=== PATIENT | female | born 1990 | race Caucasian/White ===

== ENCOUNTER 2025-06-29 23:28 | Inpatient (IN) | payer BC, OTHER ==
[~2025-06-29] VITALS: Ht 157.5 cm; Wt 77.6 kg
[2025-06-29 23:59] VITALS: BP 178/101
[2025-06-30] VITALS (21 sets, daily range): BP systolic 124–174; BP diastolic 80–112; TEMP 96.9–98.4; O2SAT 97–100
[2025-06-30 00:32] LABS: PLATELET COUNT, AUTOMATED 184 10^3/uL (150-450)
[2025-06-30 00:46] LABS: APPEARANCE, URINE HAZY (CLEAR); BACTERIA, URINE AUTO 1+ (NEGATIVE); BILIRUBIN, URINE AUTO NEGATIVE (NEGATIVE); BLOOD, URINE BLOOD NEGATIVE (NEGATIVE); GLUCOSE, URINE (UA) AUTO NEGATIVE (NEGATIVE); KETONE, URINE AUTO NEGATIVE (NEGATIVE); LEUKOCYTE ESTERASE, URINE AUTO TRACE (NEGATIVE); MUCUS, URINE SMALL (NEGATIVE); NITRITE, URINE AUTO NEGATIVE (NEGATIVE); PROTEIN, URINE AUTO 3+ mg/dL (NEGATIVE); RBC, URINE AUTO 1 /HPF (0-3); SPECIFIC GRAVITY URINE AUTO 1.023 (1.002-1.035); SQUAMOUS EPITHELIAL CELL UR AU 2 /HPF (0-6); UROBILINOGEN, URINE AUTO 0.2 mg/dL (0.0-2.0); WBC, URINE AUTO 5 /HPF (0-3)
[2025-06-30 01:03] LABS: ALT/SGPT 25 U/L (7.0-40); AST/SGOT 31 U/L (<34); CALCIUM LEVEL 8.4 MG/DL (8.5-10.1); CARBON DIOXIDE LEVEL 25 MMOL/L (20-31); CHLORIDE LEVEL 106 MMOL/L (98-107); CREATININE FOR GFR 0.74 MG/DL (0.55-1.30); GLOMERULAR FILTRATION RATE > 90.0 (>60); LDH LACTATE DEHYDROGENASE 227 U/L (120-246); POTASSIUM SERUM 4.9 MMOL/L (3.5-5.1); SODIUM LEVEL 141 MMOL/L (136-145)
[2025-06-30 01:12] LABS: AMPHETAMINES URINE REFLEX NEGATIVE (NEGATIVE); BARBITURATES URINE REFLEX NEGATIVE (NEGATIVE); BENZODIAZEPINES URINE REFLEX NEGATIVE (NEGATIVE); CANNABINOIDS URINE REFLEX NEGATIVE (NEGATIVE); COCAINE METABOLITE URINE REFLE NEGATIVE (NEGATIVE); METHADONE URINE REFLEX NEGATIVE (NEGATIVE); OPIATES URINE REFLEX NEGATIVE (NEGATIVE); PHENCYCLIDINE URINE REFLEX NEGATIVE (NEGATIVE)
[2025-06-30 01:19] LABS: TOTAL PROTEIN,RANDOM URINE 240.7 MG/DL (0.0-14.0)
[2025-06-30 01:31] LABS: HIV 1&2 SCREEN NEGATIVE (NEGATIVE)
[2025-06-30] MEDS ORDERED: LIDOCAINE 1% MDV 20 ML VIAL INFIL PRN (01:35)
[2025-06-30] MEDS ORDERED: TRANEXAMIC ACID INJection 1,000 MG in NS 100 ML IV PRN (01:35)
[2025-06-30] MEDS ORDERED: OXYTOCIN DRIP 30 UNITS in IV 1 EA IV PRN (01:35)
[2025-06-30] MEDS: ceFAZolin SODIUM 2 GM in DEXTROSE 5% (D5W) ADV/MINI-BAG 50 ML IV ONE (02:00)
[2025-06-30] MEDS ORDERED: CARBOPROST TROMETHAMINE 250 MCG/ML AMP IM PRN (02:00)
[2025-06-30] MEDS: BICITRA 30 ML SOLN UDC PO ONE (02:01)
[2025-06-30] MEDS ORDERED: ACETAMINOPHEN 1000MG/100ML IV BAG As Ordered ONE (02:17)
[2025-06-30] MEDS ORDERED: ONDANSETRON 4MG/2ML VIAL As Ordered ONE (02:17)
[2025-06-30] MEDS ORDERED: MORPHINE PRES-FREE INJ 10 MG/10 ML VIAL As Ordered ONE (02:17)
[2025-06-30] MEDS ORDERED: OXYTOCIN 30UNITS IN 0.9% NaCl 500ML IV BAG IV ONE (02:17)
[2025-06-30] MEDS ORDERED: KETOROLAC 30 MG/ML 1 ML VIAL As Ordered ONE (02:17)
[2025-06-30 03:00] LABS: CORD GAS ABE A -1.7; CORD GAS ABE V -5.0; CORD GAS HCO3 A 29.0 MMOL/L; CORD GAS HCO3 V 22.7 MMOL/L; CORD GAS O2 SAT A 21.1 %; CORD GAS O2 SAT V 43.5 %; CORD GAS PCO2 A 74.1 mmHg; CORD GAS PCO2 V 51.3 mmHg; CORD GAS PH A 7.21 UNITS; CORD GAS PH V 7.264 UNITS; CORD GAS PO2 A 13.6 mmHg; CORD GAS PO2 V 20.8 mmHg; CORD GAS SBC A 20.8 MMOL/L; CORD GAS SBC V 18.9 MMOL/L; CORD GAS TCO2 A 31.2 MMOL/L; CORD GAS TCO2 V 24.3 MMOL/L
[2025-06-30] MEDS ORDERED: CALCIUM CARBONATE 500 MG CHEW U/D PO PRN (03:10)
[2025-06-30] MEDS ORDERED: SIMETHICONE 80MG CHEW TAB PO PRN (03:10)
[2025-06-30] MEDS ORDERED: RHOGAM 300MCG (1500IU) INJ IM SCH (03:10)
[2025-06-30] MEDS ORDERED: MORPHINE 4 MG/ML 1 ML VIAL IV PRN (03:10)
[2025-06-30] MEDS ORDERED: ANUSOL HC CREAM 30 GM TOP PRN (03:10)
[2025-06-30] MEDS ORDERED: PERCOCET 5MG/325MG TAB PO PRN ×2 (03:10)
[2025-06-30] MEDS ORDERED: ACETAMINOPHEN 500 MG TAB PO PRN (03:10)
[2025-06-30] MEDS ORDERED: CALCIUM GLUCONATE 1,000 MG in DEXTROSE 5% (D5W) MINI-BAG PLU 100 ML IV PRN (03:15)
[2025-06-30] MEDS ORDERED: IBUP80TA PO (03:16)
[2025-06-30] MEDS ORDERED: COLA100C5 PO (03:16)
[2025-06-30] MEDS ORDERED: PERCOCET PO (03:16)
[2025-06-30] MEDS: OXYTOCIN DRIP 30 UNITS in IV 1 EA IV SCH (03:41)
[2025-06-30] MEDS: LR 1,000 ML IV SCH (03:42)
[2025-06-30] MEDS: MAG Sulf (L&D) 4 GM/100 ML 4 GM in IV 1 EA IV ONE (03:43)
[2025-06-30] MEDS: MAG Sulf (OBGYN) 20GM/500ML 20,000 MG in IV 1 EA IV SCH (04:09)
[2025-06-30] MEDS: KETOROLAC 30 MG/ML 1 ML VIAL IV SCH (08:30)
[2025-06-30] MEDS: PRENATAL VITAMINS CHEWABLE TABLET PO SCH (09:07)
[2025-06-30] MEDS: DOCUSATE SODIUM 100 MG CAPSULE PO SCH (09:07)
[2025-06-30] MEDS: FERROUS SULFATE 325 MG TAB PO SCH (09:07)
[2025-06-30] MEDS: ONDANSETRON 4MG/2ML VIAL IV PRN (12:29)
[2025-06-30 15:53] LABS: PLATELET COUNT, AUTOMATED 152 10^3/uL (150-450)
[2025-06-30 16:29] LABS: ALT/SGPT 19 U/L (7.0-40); AST/SGOT 31 U/L (<34); CALCIUM LEVEL 6.8 MG/DL (8.5-10.1); CARBON DIOXIDE LEVEL 24 MMOL/L (20-31); CHLORIDE LEVEL 99 MMOL/L (98-107); CREATININE FOR GFR 0.55 MG/DL (0.55-1.30); GLOMERULAR FILTRATION RATE > 90.0 (>60); MAGNESIUM LEVEL 6.2 MG/DL (1.8-2.4); POTASSIUM SERUM 4.9 MMOL/L (3.5-5.1); SODIUM LEVEL 133 MMOL/L (136-145)
[2025-06-30] MEDS: LABETALOL 200 MG TAB PO SCH (20:31)
[2025-07-01] VITALS (12 sets, daily range): BP systolic 118–156; BP diastolic 72–100; TEMP 97.2–97.8; O2SAT 95–100
[2025-07-01] MEDS: IBUPROFEN 800 MG TAB PO SCH (03:33)
[2025-07-01 06:22] LABS: PLATELET COUNT, AUTOMATED 149 10^3/uL (150-450)
[2025-07-02] VITALS (8 sets, daily range): BP systolic 128–174; BP diastolic 66–96; O2SAT 94–97
[2025-07-02 07:32] LABS: BASO # 0.0 10^3/uL (0.0-0.2); BASO % 0.3 % (0.0-1.0); EOS # 0.1 10^3/uL (0.0-0.5); EOS % 1.2 % (0.0-3.0); LYMPH # 1.7 10^3/uL (1.5-5.0); LYMPH % 16.1 % (24.0-44.0); MONO # 0.7 10^3/uL (0.0-0.8); MONO % 6.8 % (2.0-8.0); NEUTROPHILS # 8.0 10^3/uL (1.5-8.5); NEUTROPHILS % 75.0 % (36.0-66.0); PLATELET COUNT, AUTOMATED 151 10^3/uL (150-450)
[2025-07-02 07:53] LABS: ALT/SGPT 16 U/L (7.0-40); AST/SGOT 29 U/L (<34); CALCIUM LEVEL 7.3 MG/DL (8.5-10.1); CARBON DIOXIDE LEVEL 24 MMOL/L (20-31); CHLORIDE LEVEL 106 MMOL/L (98-107); CREATININE FOR GFR 0.61 MG/DL (0.55-1.30); GLOMERULAR FILTRATION RATE > 90.0 (>60); POTASSIUM SERUM 4.4 MMOL/L (3.5-5.1); SODIUM LEVEL 140 MMOL/L (136-145)
[2025-07-02] MEDS: MEASLES,MUMPS,RUBELLA VACCINE INJ (MMR-II) SC.IMMUN ONE (09:00)
[2025-07-02] MEDS: MOM 30 ML SUSPENSION UDC PO PRN (19:19)
[2025-07-03] VITALS (7 sets, daily range): BP systolic 125–153; BP diastolic 79–90; O2SAT 92–98
[2025-07-03] MEDS ORDERED: PILL CUTTER 1 EACH XX PRN (12:40)
[2025-07-03] MEDS: LABETALOL 200 MG TAB PO SCH (20:13)
[2025-07-04 01:55] VITALS: BP 154/93; O2SAT 95
[2025-07-04 06:00] VITALS: BP 143/89; O2SAT 97
[2025-07-04 10:00] VITALS: BP 138/79; O2SAT 97
[2025-07-04] MEDS ORDERED: LABE20TAB PO (12:26)
[2025-07-04 14:00] VITALS: BP 137/81; O2SAT 97
== END 2025-07-04 16:30 | disposition home or self-care (01) | DRG 540 ==
LOC: M LDO 23:28 → M LDI 06-30 01:25 → M OBS 06-30 05:01
PROVIDERS: ADMIT Advanced Practice Midwife; ATTEND Obstetrics & Gynecology
PROC: 10D00Z1 Extraction of Products of Conception, Low, Open Approach (ICD-10-PCS; principal; 2025-06-30 01:55)
DX: O41.03X0 Oligohydramnios, third trimester, not applicable or unspecified (principal); O36.5930 Maternal care for other known or suspected poor fetal growth, third trimester, not applicable or unspecified; O14.14 Severe pre-eclampsia complicating childbirth; Z3A.36 36 weeks gestation of pregnancy; O76 Abnormality in fetal heart rate and rhythm complicating labor and delivery; Z37.0 Single live birth